=== PATIENT | male | born 1930 | race Caucasian/White ===

== ENCOUNTER 2017-05-13 09:13 | Emergency (ER) | payer MEDICARE ==
[2017-05-13 09:42] VITALS: BP 144/66
--- NOTE | 2017-05-13 11:26 | UC ---
HPI Wound/Suture Re-check - HPI Summary HPI Summary: SUTURES PLACED 05/05/17 IN RIGHT FORE ARM FOLLOWING DERMATOLOGY BIOPSY. 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 NO FEVER. NO DRAINAGE FROM SUTURE SITES - History Of Current Complaint Chief Complaint: UCGeneralIllness Stated Complaint: SUTURE REMOVAL Time Seen by Provider: 05/13/17 09:55 Hx Obtained From: Patient Onset/Duration: Gradual Onset, Lasting Weeks, Still Present Pain Intensity: 0 Pain Scale Used: 0-10 Numeric - Allergies/Home Medications Allergies/Adverse Reactions: Allergies Allergy/AdvReac Type Severity Reaction Status Date / Time Adhesive Tape Allergy Rash And Verified 05/13/17 09:34 Itching Home Medications: Home Medications Atorvastatin* [Lipitor 10 MG*] 1 tab PO DAILY 05/13/17 [History Confirmed ] PMH/Surg Hx/FS Hx/Imm Hx Previously Healthy: Yes - Surgical History Surgical History: Yes Surgery Procedure, Year, and Place: 1963 PILONDIAL CYST REMOVED, 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 ABNORMAL SKIN REMOVAL ABOUT ONCE A YEAR(SQUAMOUS OR BASAL CELL) - Social History Occupation: Retired Lives: With Family Alcohol Use: Daily Alcohol Amount: 4-5 [employer] WINE & 1 HIGHBALL/DAY Substance Use Type: None Smoking Status (MU): Former Smoker Have You Smoked in the Last Year: No When Did the Patient Quit Smoking/Using Tobacco: 1965 Review of Systems Constitutional: Negative Skin: Other - 2 X REPAIRED LACERATION RIGHT FORE ARM EACH WITH FIVE PROLENE SUTURES. Eyes: Negative ENT: Negative Respiratory: Negative Cardiovascular: Negative Gastrointestinal: Negative Genitourinary: Negative Motor: Negative Neurovascular: Negative Musculoskeletal: Negative Neurological: Negative Psychological: Negative All Other Systems Reviewed And Are Negative: Yes Physical Exam Triage Information Reviewed: Yes Appearance: Well-Appearing, No Pain Distress, Well-Nourished Vital Signs: Initial Vital Signs Temp 98.7 F 05/13/17 09:38 Pulse 57 05/13/17 09:38 Resp 16 05/13/17 09:38 BP 144/66 05/13/17 09:38 Pulse Ox 96 05/13/17 09:38 Vital Signs Reviewed: Yes Eye Exam: Normal ENT Exam: Normal ENT: Positive: Normal ENT inspection Dental Exam: Normal Neck exam: Normal Neck: Positive: Supple, Nontender, No Lymphadenopathy Respiratory Exam: Normal Respiratory: Positive: Chest non-tender, Lungs clear, Normal breath sounds, No respiratory distress, No accessory muscle use Cardiovascular Exam: Normal Cardiovascular: Positive: RRR, No Murmur, Pulses Normal Abdominal Exam: Normal Musculoskeletal Exam: Normal Musculoskeletal: Positive: Strength Intact Neurological Exam: Normal Psychological Exam: Normal Psychological: Positive: Normal Response To Family Skin: Positive: Other - 2 X REPAIRED LACERATION RIGHT FORE ARM EACH WITH FIVE PROLENE SUTURES. Course/Dx - Differential Dx - Laceration/Wound Differential Diagnoses: Suture Removal Provider Diagnoses: SUTURE REMOVAL 2 X LACERATION RIGHT FOREARM EACH WITH FIVE PROLENE SUTURES. Discharge - Discharge Plan Condition: Stable Disposition: HOME Patient Education Materials: Stitches Removal (ED) Referrals: Michael Antonio MD [Primary Care Provider] -
== END 2017-05-13 10:09 | disposition home or self-care (01) ==
LOC: UCEAST 09:13
DX: Z48.02 Encounter for removal of sutures (principal); Z87.891 Personal history of nicotine dependence; Z85.828 Personal history of other malignant neoplasm of skin
CPT/HCPCS: 99212; G0463

== ENCOUNTER → 2018-05-18 09:39 | Day surgery (SDC) | payer MEDICARE ==
--- NOTE | 2018-05-13 17:10 | HP ---
CC: Dr. Antonio; Dr. Latisha Moffett; Matt Mock MD* ADMITTING HISTORY AND PHYSICAL: DATE OF ADMISSION: 05/18/18 ADMITTING DIAGNOSES: Right testicular mass. PLANNED PROCEDURE: Right radical orchiectomy. HISTORY OF PRESENT ILLNESS: Michael Davey is an 87-year-old gentleman who was recently evaluated because of complaints of right testicular swelling and mild discomfort. Examination revealed a firm intratesticular mass. An ultrasound confirmed intratesticular mass with an appearance suspicious for testicular neoplasm, possibly lymphoma. He is now being brought in for a right radical orchiectomy. PAST MEDICAL HISTORY: Significant for: 1. Atrial fibrillation. 2. History of aortic stenosis. 3. Right bundle-branch block. 4. Peripheral vascular disease. 5. Mixed hyperlipidemia. MEDICATIONS ON ADMISSION: 1. Pravastatin 80 mg daily. 2. Klor-Con 10 mEq daily. 3. Amlodipine 10 mg daily. 4. Furosemide 20 mg tablet 3 days a week. 5. Pantoprazole 40 mg daily. 6. Loratadine 10 mg daily. 7. Coumadin, which is currently on hold. ALLERGIES AND INTOLERANCES: No known drug allergies (has reaction with adhesive tape). PHYSICAL EXAMINATION GENERAL: Reveals a pleasant, elderly gentleman who is alert and oriented. VITAL SIGNS: Blood pressure is 128/80, pulse 70 per minute, oxygen saturation 98% on room air. LUNGS: Clear bilaterally. CARDIOVASCULAR: S1, S2. Regular. GENITALIA: Testicles are descended bilaterally, the left testicle is atrophic and otherwise normal on the right side. There appears to be a firm nontender right intratesticular mass suspicious for neoplasm. 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 PLAN: Planned procedure is right radical orchiectomy. [id number]/[facility] #: [id number] [facility]
[~2018-05-18 09:39] MED LIST: Buffered Lidocaine 0.9% SYRIN* 5 ML/SYR SYRINGE INTRADERM ONE; Collodion (Flexible)* 120 ML BTL ONE; Dexamethasone IV* 4 MG/ML 1 ML (4 MG) IV SLOW PU ONE; Dexamethasone IV* 4 MG/ML 1 ML (4 MG) ONE; DiMENhydriNATE IV* 50 MG/ML VIAL IV PUSH PRN; EPHEDrine (Pressors)* 50 MG/ML VIAL ONE; Famotidine IV* 10 MG/ML 2 ML (20 mg) IV ONE; Famotidine IV* 10 MG/ML 2 ML (20 mg) ONE; HYDROcodone/ACETAMIN 5-325 MG* 1 TAB PO PRN; Lidocaine 1% INJ* 10 MG/ML 30 ML SDV ONE; Lidocaine 2% PF * 5 ML VIAL ONE; Midazolam* 1 MG/ML 5 ML VIAL (5 MG) ONE; Naloxone* 0.4 MG/ML 1 ML VIAL IV PRN; Ondansetron INJ* 2 MG/ML VIAL ONE; Phenylephrine INJ* 10 MG/ML 1 ML VIAL (10 MG) ONE; Propofol* 10 MG/ML 20 ML BTL IV PUSH ONE; cefTRIAXone(*) 2 GM ADDV.VIAL IVPB ONE; fentaNYL* 50 MCG/ML 2 ML VIAL (100 MCG VIAL) IV PRN; fentaNYL* 50 MCG/ML 2 ML VIAL (100 MCG VIAL) ONE; oxyCODONE/Acetamin 5/325 MG* TAB ONE; oxyCODONE/Acetamin 5/325 MG* TAB PO PRN
[2018-05-18 14:24] VITALS: BP 142/75
--- NOTE | 2018-05-18 22:44 | OP ---
CC: Dr. Antonio; Dr. Moffett * DATE OF OPERATION: 05/18/18 - [facility] DATE OF : 30 SURGEON: Matt Mock MD MECHANICAL DESIGN ENGINEER: Kris Truong MD ANESTHESIOLOGIST: Ron Rubio MD ANESTHESIA: General. PRE-OP DIAGNOSIS: Right testicular mass. POST-OP DIAGNOSIS: Right testicular mass. OPERATIVE PROCEDURE: Right radical orchiectomy. INDICATIONS: Michael Davey is an 87-year-old gentleman who is evaluated and noted to have a right testicular mass. He is being brought in for a right radical orchiectomy. POSTOPERATIVE CONDITION: Stable. COMPLICATIONS: None. BLOOD LOSS: Minimal. SPECIMEN: 1. Lipoma of spermatic cord. 2. Right testicle and spermatic cord. DESCRIPTION OF PROCEDURE: After induction of general anesthesia, the patient was placed on the operating table in supine position. The lower abdomen and external genitalia were prepped and draped in the usual sterile fashion. An incision was made in the right inguinal area. The subcutaneous tissue and Sintia's fascia was divided in the line of the incision. The external ring was identified. I did not have to completely open up the external oblique aponeurosis. The cord structures were identified and were encircled with a [place] drain. There was a lipoma noted in the spermatic cord, which was excised. Next, the cord was dissected proximally and once this was done, the cord was bisected into two, and the proximal ends were controlled using 0 chromic suture ligature and 0 silk ties. Once this was accomplished, the remainder of the cord was then dissected free of its surrounding attachments and the gubernacular attachments were sharply divided. The testicle was delivered up along with the spermatic cord through the inguinal incision and sent for histopathology. The wound was irrigated. The subcutaneous tissue and the Sintia's was approximated using interrupted sutures of 2-0 Vicryl and skin was approximated using 4-0 Vicryl running subcuticular sutures. All sponge and needle counts were correct. The patient tolerated the procedure satisfactorily and was transferred back to the recovery area in stable condition. [id number]/[facility] [place] #: [id number] [facility]
== END | disposition home or self-care (01) ==
LOC: OR 09:39
PROVIDERS: ATTEND Urology
DX: C83.39 Diffuse large B-cell lymphoma, extranodal and solid organ sites (principal); D17.6 Benign lipomatous neoplasm of spermatic cord; I48.91 Unspecified atrial fibrillation; Z79.01 Long term (current) use of anticoagulants; I35.0 Nonrheumatic aortic (valve) stenosis; I45.10 Unspecified right bundle-branch block; I73.9 Peripheral vascular disease, unspecified; E78.2 Mixed hyperlipidemia
CPT/HCPCS: 88184; 88187; 88188; 88189; 88271; 88291; 88304; 88309; 88333; 88341; 88342; 88360; 88365; A9270-GY; J0696; J1100; J2250; J2405; J2704; J3010

== ENCOUNTER 2020-08-06 11:54 | Inpatient (IN) ==
[2020-08-06 12:57] LABS: ABS Basophils 0.1 10^3/ul (0-0.2); ABS Eosinophils 0.1 10^3/ul (0-0.6); ABS Lymphocytes 1.6 10^3/ul (1.0-4.8); ABS Monocytes 0.8 10^3/ul (0-0.8); ABS Neutrophils 5.4 10^3/ul (1.5-7.7); Eosinophil % 1.8 %; Hematocrit 30 % (42-52); Lymphocyte % 20.3 %; Mean Corpuscular HGB Conc 34 g/dL (31-36); Mean Corpuscular Hemoglobin 30 pg (27-31); Mean Corpuscular Volume 90 fL (80-94); Mean Platelet Volume 7.9 fL (7.4-10.4); Nucleated Red Blood Cells % 0.1; Platelet Count 163 10^3/uL (150-450); Red Blood Count 3.33 10^6 /uL (4.18-5.48); Red Cell Distribution Width 15 % (10-15); White Blood Count 8.1 10^3/uL (3.5-10.8)
[2020-08-06 13:08] LABS: INR 3.64 (0.82-1.09)
[2020-08-06 13:11] LABS: Albumin/Globulin Ratio 1.6 (1-3); BUN/Creatinine Ratio 17.8 (8-20); EGFR African American 122.4 (>60); EGFR Non-African American 101.2 (>60); Globulin 2.5 g/dL (2-4); Potassium 4.2 mmol/L (3.5-5.0); Total Protein 6.5 g/dL (6.4-8.9)
[2020-08-06] MEDS ORDERED: Iohexol 300 (CONTRAST) 10 ML SDV IV ONE (13:59)
[2020-08-06] MEDS ORDERED: Al Hydrox/Mg Hydrox/Simet LIQ 30 ML UDC PO PRN (16:25)
[2020-08-07 07:15] LABS: ABS Lymphocytes 1.3 10^3/ul (1.0-4.8); ABS Monocytes 0.9 10^3/ul (0-0.8); ABS Neutrophils 8.1 10^3/ul (1.5-7.7); Eosinophil % 0.3 %; Hematocrit 28 % (42-52); Hemoglobin 9.8 g/dL (14.0-18.0); Lymphocyte % 12.1 %; Mean Corpuscular HGB Conc 35 g/dL (31-36); Mean Corpuscular Hemoglobin 31 pg (27-31); Mean Corpuscular Volume 89 fL (80-94); Platelet Count 179 10^3/uL (150-450); Red Blood Count 3.19 10^6 /uL (4.18-5.48); Red Cell Distribution Width 15 % (10-15); White Blood Count 10.4 10^3/uL (3.5-10.8)
[2020-08-07] MEDS: ROSUVASTATIN 20 MG PO SCH (08:13)
[2020-08-07 08:47] LABS: INR 2.35 (0.82-1.09)
[2020-08-07] MEDS ORDERED: Potassium Chlor 10 meq TAB PO SCH (09:00)
[2020-08-08 06:58] LABS: ABS Eosinophils 0.1 10^3/ul (0-0.6); ABS Lymphocytes 1.5 10^3/ul (1.0-4.8); ABS Neutrophils 6.9 10^3/ul (1.5-7.7); Eosinophil % 1.2 %; Hematocrit 27 % (42-52); Hemoglobin 9.3 g/dL (14.0-18.0); INR 1.8 (0.82-1.09); Lymphocyte % 15.5 %; Mean Corpuscular HGB Conc 35 g/dL (31-36); Mean Corpuscular Hemoglobin 31 pg (27-31); Mean Corpuscular Volume 90 fL (80-94); Mean Platelet Volume 8.1 fL (7.4-10.4); Platelet Count 186 10^3/uL (150-450); Red Blood Count 2.97 10^6 /uL (4.18-5.48); Red Cell Distribution Width 15 % (10-15); White Blood Count 9.5 10^3/uL (3.5-10.8)
[2020-08-08] MEDS: ROSUVASTATIN 20 MG PO SCH (08:45)
[2020-08-09] MEDS: ROSUVASTATIN 20 MG PO SCH (08:21)
[2020-08-10 06:04] LABS: ABS Eosinophils 0.2 10^3/ul (0-0.6); ABS Lymphocytes 1.3 10^3/ul (1.0-4.8); ABS Monocytes 0.9 10^3/ul (0-0.8); ABS Neutrophils 5.2 10^3/ul (1.5-7.7); Eosinophil % 2.7 %; Hematocrit 24 % (42-52); Hemoglobin 8.1 g/dL (14.0-18.0); Lymphocyte % 16.6 %; Mean Corpuscular HGB Conc 34 g/dL (31-36); Mean Corpuscular Hemoglobin 31 pg (27-31); Mean Corpuscular Volume 90 fL (80-94); Mean Platelet Volume 7.6 fL (7.4-10.4); Nucleated Red Blood Cells % 0.1; Platelet Count 213 10^3/uL (150-450); Red Blood Count 2.65 10^6 /uL (4.18-5.48); Red Cell Distribution Width 15 % (10-15); White Blood Count 7.5 10^3/uL (3.5-10.8)
[2020-08-10] MEDS: ROSUVASTATIN 20 MG PO SCH (10:27)
[2020-08-11 09:16] LABS: ABS Eosinophils 0.3 10^3/ul (0-0.6); ABS Monocytes 0.9 10^3/ul (0-0.8); ABS Neutrophils 5.7 10^3/ul (1.5-7.7); Eosinophil % 4.1 %; Hematocrit 28 % (42-52); Hemoglobin 9.2 g/dL (14.0-18.0); Lymphocyte % 13.1 %; Mean Corpuscular HGB Conc 34 g/dL (31-36); Mean Corpuscular Hemoglobin 30 pg (27-31); Mean Corpuscular Volume 91 fL (80-94); Mean Platelet Volume 7.5 fL (7.4-10.4); Platelet Count 262 10^3/uL (150-450); Red Blood Count 3.04 10^6 /uL (4.18-5.48); Red Cell Distribution Width 16 % (10-15); White Blood Count 7.9 10^3/uL (3.5-10.8)
[2020-08-11 09:20] LABS: INR 1.26 (0.82-1.09)
[2020-08-11 09:25] LABS: BUN/Creatinine Ratio 23.8 (8-20); Calcium 8.7 mg/dL (8.6-10.3); EGFR African American 110.1 (>60); Potassium 3.8 mmol/L (3.5-5.0)
[2020-08-11] MEDS: ROSUVASTATIN 20 MG PO SCH (10:23)
[2020-08-12] MEDS: DIPHENHYDRAMINE 2% TOPICAL SCH ×3 (11:55→21:37)
[2020-08-12] MEDS: ROSUVASTATIN 20 MG PO SCH (11:55)
[2020-08-13] MEDS: ROSUVASTATIN 20 MG PO SCH (07:41)
[2020-08-13] MEDS: DIPHENHYDRAMINE 2% TOPICAL SCH ×3 (07:42→21:47)
[2020-08-14] MEDS: ROSUVASTATIN 20 MG PO SCH (08:37)
[2020-08-14] MEDS: DIPHENHYDRAMINE 2% TOPICAL SCH ×3 (09:02→21:14)
[2020-08-15 06:45] LABS: ABS Eosinophils 0.3 10^3/ul (0-0.6); ABS Lymphocytes 1.1 10^3/ul (1.0-4.8); ABS Monocytes 0.7 10^3/ul (0-0.8); ABS Neutrophils 5.1 10^3/ul (1.5-7.7); Eosinophil % 3.8 %; Hematocrit 31 % (42-52); Hemoglobin 10.2 g/dL (14.0-18.0); Lymphocyte % 15.6 %; Mean Corpuscular HGB Conc 33 g/dL (31-36); Mean Corpuscular Hemoglobin 30 pg (27-31); Mean Corpuscular Volume 92 fL (80-94); Mean Platelet Volume 7.4 fL (7.4-10.4); Platelet Count 348 10^3/uL (150-450); Red Blood Count 3.37 10^6 /uL (4.18-5.48); Red Cell Distribution Width 17 % (10-15); White Blood Count 7.2 10^3/uL (3.5-10.8)
[2020-08-15 06:49] LABS: BUN/Creatinine Ratio 18.9 (8-20); Calcium 8.8 mg/dL (8.6-10.3); EGFR African American 120.5 (>60); EGFR Non-African American 99.6 (>60); Potassium 3.7 mmol/L (3.5-5.0)
[2020-08-15 07:02] LABS: TSH Ultra Thyroid Stim Horm 1.25 mcIU/mL (0.34-5.60)
[2020-08-15] MEDS: DIPHENHYDRAMINE 2% TOPICAL SCH ×3 (08:22→22:30)
[2020-08-15] MEDS: ROSUVASTATIN 20 MG PO SCH (08:22)
[2020-08-15 10:45] LABS: Free T4 1.56 ng/dL (0.61-1.12)
[2020-08-15 10:53] LABS: Folate > 20.00 ng/mL (>3.99)
[2020-08-15 10:54] LABS: Vitamin B12 474 pg/mL (180-914)
[2020-08-16] MEDS: ROSUVASTATIN 20 MG PO SCH (09:36)
[2020-08-16] MEDS: DIPHENHYDRAMINE 2% TOPICAL SCH ×2 (09:37→14:19)
[2020-08-16 14:23] VITALS: BP 141/64
== END 2020-08-16 14:16 | disposition swing bed (61) | DRG 605 ==
LOC: ED 11:54 → MED 11:54
PROVIDERS: ADMIT Internal Medicine; ATTEND Internal Medicine